=== PATIENT | male | born 1955 | race Caucasian/White ===

== ENCOUNTER → 2017-04-23 | Outpatient (CLI) | payer OTHER ==
[~2017-04-23] MED LIST: ASPIR-LOW81 MG PO; ASPIRIN E.C. 8181 MG PO; METOPROLOL SUCC25 MG PO; MOBIC 7.5MG7.5 MG PO; TOPROL XL 25MG25 MG PO; ULTRAM 50MG TAB50 MG PO; ZOCOR 40MG40 MG PO; ZOCOR40 MG PO
== END ==
LOC: COL.RAD 13:49
DX: M51.16 Intervertebral disc disorders with radiculopathy, lumbar region (principal); M48.061 Spinal stenosis, lumbar region without neurogenic claudication; M89.38 Hypertrophy of bone, other site

== ENCOUNTER → 2020-05-02 | Outpatient (CLI) | payer MEDICARE, BC | LOC: COL.RAD 09:45 | DX: Z13.6 Encounter for screening for cardiovascular disorders (principal); I25.10 Atherosclerotic heart disease of native coronary artery without angina pectoris; Z82.49 Family history of ischemic heart disease and other diseases of the circulatory system ==

== ENCOUNTER → 2021-04-27 | Outpatient (CLI) | payer MEDICARE, BC | LOC: COL.RAD 08:14 | DX: Z12.2 Encounter for screening for malignant neoplasm of respiratory organs (principal); Z87.891 Personal history of nicotine dependence ==